=== PATIENT | female | born 1940 | race Caucasian/White ===

== ENCOUNTER 2017-05-28 15:33 | Emergency (ER) | payer OTHER, MEDICAID ==
[~2017-05-28] VITALS: Ht 152.4 cm; Wt 88.9 kg
[~2017-05-28 15:33] MED LIST: AMBIEN5 MG PO; AMOXICILLIN AND1 TA2 PO; CARDIZEM CD240 MG PO; CLONIDINE HCL0.2 MG PO; COL100 PO; LAC PO; LASIX20 MG PO; LOPRESSOR50 MG PO; LOTENSIN40 MG PO; NORCO1 TA2 PO; OXYBUTYNIN CHLOR5 MG PO; RXMED PO
[2017-05-28 15:52] VITALS: Ht 152.4 cm; Wt 88.9 kg
[2017-05-28 20:14] VITALS: BP 150/83
== END 2017-05-28 20:14 | disposition home or self-care (01) ==
LOC: ED 15:33
DX: R05 Cough (principal); R06.02 Shortness of breath; R50.9 Fever, unspecified; I10 Essential (primary) hypertension
CPT/HCPCS: J7512; J7613; J7644